=== PATIENT | female | born 1955 | race African-American/Black ===

== ENCOUNTER 2017-05-17 14:19 | Outpatient (CLI) | payer MEDICARE, MEDICAID ==
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
== END 2017-05-17 14:20 | disposition home or self-care (01) ==
LOC: EDBD → TBSIIMAG 14:19
PROVIDERS: ATTEND Physician Assistant
DX: M54.2 Cervicalgia (principal)
CPT/HCPCS: 72040

== ENCOUNTER 2017-05-17 15:22 | Outpatient (CLI) | payer MEDICARE, MEDICAID ==
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
== END 2017-05-17 15:23 | disposition home or self-care (01) ==
LOC: TBSIIMAG 15:22
PROVIDERS: ATTEND Neurological Surgery
DX: S02.609A Fracture of mandible, unspecified, initial encounter for closed fracture (principal); S12.9XXA Fracture of neck, unspecified, initial encounter; K02.9 Dental caries, unspecified; K05.6 Periodontal disease, unspecified; M47.892 Other spondylosis, cervical region
CPT/HCPCS: 70486; 72040; 72125